=== PATIENT | male | born 1990 | race Caucasian/White ===

== ENCOUNTER → 2020-12-30 09:31 | Outpatient (CLI) | payer BC, SELFPAY ==
[2020-12-30] MEDS: COVID-19 VACC #1, MRNA(MOD) 100 MCG/0.5 ML VIAL IM (09:36)
== END ==
PROVIDERS: Visit Provider Internal Medicine
DX: Z23 Encounter for immunization (principal)
CPT/HCPCS: 0011A; 91301

== ENCOUNTER → 2021-01-27 08:56 | Outpatient (CLI) | payer BC, SELFPAY ==
[2021-01-27] MEDS: COVID-19 VACC #2, MRNA(MOD) 100 MCG/0.5 ML VIAL IM (09:00)
== END ==
PROVIDERS: Visit Provider Internal Medicine
DX: Z23 Encounter for immunization (principal)
CPT/HCPCS: 0012A; 91301